=== PATIENT | male | born 1990 | race Hispanic/Latino ===

== ENCOUNTER 2020-03-27 22:15 | Emergency (ER) | payer SELFPAY ==
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
== END 2020-03-28 01:30 | disposition home or self-care (01) ==
LOC: ERS 22:15
DX: S80.01XA Contusion of right knee, initial encounter (principal); V49.9XXA Car occupant (driver) (passenger) injured in unspecified traffic accident, initial encounter
CPT/HCPCS: 71045